=== PATIENT | female | born 1995 | race Caucasian/White ===

== ENCOUNTER 2020-08-16 10:39 | Emergency (ER) | payer MEDICAID, SELFPAY ==
[2020-08-16 10:41] VITALS: BP 137/71; PULSE 78; RESP 18; TEMP 36.1; O2SAT 98; BMI 36.9
--- NOTE | 2020-08-16 10:43 | ED.RN ---
PER PT SHE WAS ALREADY TESTED AT WORK
--- NOTE | 2020-08-16 11:11 | RAD_ITS ---
STUDY: X-RAY - RIGHT SHOULDER REASON FOR EXAM: Female, 25 years old. NKI, pain x 1 week -- thinks she overused it at work, most pain in forearm TECHNIQUE: 4 view(s) of the shoulder. COMPARISON: None. FINDINGS: Normal glenohumeral articulation. Normal acromioclavicular joint. Normal acromion. Normal humeral head and visualized proximal humerus. The soft tissue structures are unremarkable. Normal visualized pulmonary apex. RAD/Shoulder min 2 Views IMPRESSION: Normal x-ray examination of the shoulder. Electronically Signed: Carlos Walls, at 11:53 EDT , Service support ,
--- NOTE | 2020-08-16 11:11 | RAD_ITS ---
STUDY: X-RAY - RIGHT RADIUS AND ULNA REASON FOR EXAM: Female, 25 years old. NKI, pain x 1 week -- thinks she overused it at work, most pain in forearm TECHNIQUE: 2 view(s) of the forearm. COMPARISON: None. FINDINGS: There is no demonstrated soft tissue swelling. Normal visualized radius. Normal visualized ulna. RAD/Forearm 2 Views IMPRESSION: Normal x-ray examination of the radius and ulna. Electronically Signed: Carlos Walls, at 11:53 EDT , Service support ,
--- NOTE | 2020-08-16 11:11 | RAD_ITS ---
STUDY: X-RAY - RIGHT ELBOW REASON FOR EXAM: Female, 25 years old. NKI, pain x 1 week -- thinks she overused it at work, most pain in forearm TECHNIQUE: 3 view(s) of the elbow. COMPARISON: None. FINDINGS: Normal visualized humerus, radius and ulna. Normal radiocapitellar and ulnotrochlear articulations. The soft tissue structures are unremarkable. RAD/Elbow min 3 Views IMPRESSION: Normal x-ray examination of the elbow. Electronically Signed: Carlos Walls, at 11:53 EDT , Service support ,
--- NOTE | 2020-08-16 11:27 | ED.VISSUMM ---
- ER Visit Summary Date of Service: 08/16/20 Chief Complaint: Right arm pain History of Present Illness: The patient is a 25 F presenting with right arm pain. She states this has been ongoing for the past week. 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 She complains of right upper extremity pain. She denies any fall. She does not recall a specific injury. She is right-handed. She has tried Tylenol at home. Denies other complaints. Physical Examination: Vitals are stable. Patient is afebrile. Alert no acute distress. HEENT exam is unremarkable. Neck is nontender Lungs are clear and equal bilaterally. Heart is regular rate and rhythm. Abdomen is soft nontender nondistended. Extremities right forearm tenderness with active full range of motion. Neurovascular intact distally. Skin is warm and dry. No focal neurologic deficit. Remainder of exam is unremarkable. Emergency Department Course and Treatment: Patient was given Toradol IM. X-ray right shoulder, elbow, forearm show no acute process. She was given prescription for naproxen. She is advised to follow-up with corporate care. Advised return to the ED for worsening complaints. Disposition: Discharge home Impression: Right arm sprain This note was generated with [employer] dictation software. It may contain incorrect words, spelling, and punctuation that were not noted in review of the chart prior to signing ED Disposition - Plan for ED Patient: Referrals: Kian Mcgrath MD [Primary Care Provider] -
[2020-08-16] MEDS: Ketorolac 60 MG/2 ML Vial IM (11:44)
--- NOTE | 2020-08-16 12:28 | ED.DEP ---
ED Disposition - Plan for ED Patient: Instructions: ED ELBOW SPRAIN Prescriptions: Naproxen [Naprosyn] 500 mg PO BID PRN #20 tab Prescription Printed Referrals: Kian Mcgrath MD [Primary Care Provider] - [facility] [GROUP OF PHYSICIANS] -
[2020-08-16 12:44] VITALS: BP 121/57; PULSE 65; RESP 14
== END 2020-08-16 12:46 | disposition home or self-care (01) ==
LOC: ED 11:04
PROVIDERS: Emergency Provider Emergency Medicine; PCP Family Medicine
DX: S53.401A Unspecified sprain of right elbow, initial encounter (principal); X58.XXXA Exposure to other specified factors, initial encounter; Y93.9 Activity, unspecified; Y92.9 Unspecified place or not applicable; G40.909 Epilepsy, unspecified, not intractable, without status epilepticus; Z79.899 Other long term (current) drug therapy; Z72.0 Tobacco use
CPT/HCPCS: 73030; 73080; 73090; 96372; 99282

== ENCOUNTER 2024-10-27 01:15 | Emergency (ER) | payer SELFPAY ==
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
== END 2024-10-27 06:20 | disposition home or self-care (01) ==
PROVIDERS: Emergency Provider Emergency Medicine; PCP Physician Assistant Medical; Visit Provider Emergency Medicine
DX: S80.211A Abrasion, right knee, initial encounter (principal); V48.1XXA Car passenger injured in noncollision transport accident in nontraffic accident, initial encounter; Y92.89 Other specified places as the place of occurrence of the external cause; F17.200 Nicotine dependence, unspecified, uncomplicated; M54.2 Cervicalgia
CPT/HCPCS: 72125; 73564